=== PATIENT | female | born 1945 | race Caucasian/White ===

== ENCOUNTER 2016-11-23 08:30 | Outpatient (CLI) | payer MEDICARE, OTHER | END 2016-11-23 08:31 | disposition home or self-care (01) | DX: E03.9 Hypothyroidism, unspecified (principal); E78.5 Hyperlipidemia, unspecified; Z51.81 Encounter for therapeutic drug level monitoring ==

== ENCOUNTER 2017-02-15 09:38 | Outpatient (CLI) | payer MEDICARE, OTHER ==
[2017-02-15 19:13] LABS: ALBUMIN/GLOBULIN RATIO 1.3 (1.0-2.2); BASOPHILS % (AUTO) 0.4 %; BILIRUBIN,TOTAL 0.7 mg/dL (0.2-1.0); BUN - BLOOD UREA NITROGEN 13 mg/dL (6-20); CALCIUM 9.8 mg/dL (8.5-10.3); CARBON DIOXIDE - CO2 26 mmol/L (21-32); CHLORIDE 105 mmol/L (101-111); CHOL/HDL RATIO 2.2 (<4.4); CHOLESTEROL 169 mg/dL; CREATININE 0.7 mg/dL (0.4-1.0); EOSINOPHILS # (AUTO) 0.2 10^3/uL (0.0-0.7); EOSINOPHILS % (AUTO) 3.8 %; GFR - MDRD 82 (>89); GLUCOSE 95 mg/dL (70-100); HCT - HEMATOCRIT 41.7 % (37.0-47.0); HDL CHOLESTEROL 77 mg/dL; HGB - HEMOGLOBIN 13.8 g/dL (12.0-16.0); LDL/HDL RATIO 0.9 (<4.4); LYMPHOCYTES # (AUTO) 1.9 10^3/uL (1.5-3.5); LYMPHOCYTES % (AUTO) 29.4 %; MEAN CORPUSCULAR HEMOGLOBIN 29.7 pg (27.0-31.0); MEAN PLATELET VOLUME 8.3 fL (7.9-10.8); MONOCYTES # (AUTO) 0.4 10^3/uL (0.0-1.0); NEUTROPHILS # (AUTO) 3.8 10^3/uL (1.5-6.6); NEUTROPHILS % (AUTO) 59.4 %; NUCLEATED RED BLOOD CELLS AUTO 0.1 /100WBC; POTASSIUM 4.2 mmol/L (3.5-5.0); RED BLOOD COUNT 4.63 10^6/uL (4.20-5.40); RED CELL DISTRIBUTION WIDTH 13.1 % (12.0-15.0); SODIUM 140 mmol/L (135-145); TOTAL PROTEIN 7.5 g/dL (6.7-8.2); TRIGLYCERIDES 98 mg/dL; UNCORRECTED WHITE BLOOD COUNT 6.4 x10^3/uL; VLDL CHOLESTEROL 20 mg/dL; WHITE BLOOD COUNT 6.4 x10^3/uL (4.8-10.8)
[2017-02-15 19:36] LABS: THYROID STIMULATING HORMONE 2.06 uIU/mL (0.34-5.60)
== END 2017-02-15 09:39 | disposition home or self-care (01) ==
LOC: LAB.S 09:38
PROVIDERS: ATTEND Nurse Practitioner Family
DX: Z51.81 Encounter for therapeutic drug level monitoring (principal)
CPT/HCPCS: 36415; 80053; 80061; 84439; 84443; 85025

== ENCOUNTER 2017-03-15 10:45 | Outpatient (CLI) | payer MEDICARE, OTHER ==
[2017-03-15 18:27] LABS: BILIRUBIN,URINE NEGATIVE (NEGATIVE)
[2017-03-15 18:41] LABS: UR CULTURE IF IND INDICATED
== END 2017-03-15 10:46 | disposition home or self-care (01) ==
LOC: LAB.R 10:45
PROVIDERS: ATTEND Nurse Practitioner Family
DX: N39.0 Urinary tract infection, site not specified (principal)
CPT/HCPCS: 81001; 87077; 87086

== ENCOUNTER 2017-03-24 08:00 | Outpatient (CLI) | payer MEDICARE, OTHER ==
[2017-03-24 18:39] LABS: BILIRUBIN,URINE NEGATIVE (NEGATIVE)
[2017-03-24 19:06] LABS: UR CULTURE IF IND NOT INDICATED
== END 2017-03-24 08:01 ==
LOC: LAB.R 08:00
PROVIDERS: ATTEND Nurse Practitioner Family
DX: N39.0 Urinary tract infection, site not specified (principal)
CPT/HCPCS: 81001; 87086

== ENCOUNTER 2017-05-10 08:51 | Outpatient (CLI) | payer MEDICARE, OTHER ==
[2017-05-10 19:54] LABS: THYROID STIMULATING HORMONE < 0.08 uIU/mL (0.34-5.60)
== END 2017-05-10 08:52 | disposition home or self-care (01) ==
LOC: LAB.S 08:51
PROVIDERS: ATTEND Nurse Practitioner Family
DX: N39.0 Urinary tract infection, site not specified (principal); E03.9 Hypothyroidism, unspecified
CPT/HCPCS: 36415; 81001; 84439; 84443; 87086

== ENCOUNTER 2017-05-11 08:00 | Outpatient (CLI) | payer MEDICARE, OTHER ==
[2017-05-11 18:30] LABS: BILIRUBIN,URINE NEGATIVE (NEGATIVE)
[2017-05-11 18:57] LABS: UR CULTURE IF IND NOT INDICATED
== END 2017-05-11 08:01 | disposition home or self-care (01) ==
LOC: LAB.R 08:00
PROVIDERS: ATTEND Nurse Practitioner Family
DX: N39.0 Urinary tract infection, site not specified (principal)
CPT/HCPCS: 81001; 87086

== ENCOUNTER 2017-09-20 08:00 | Outpatient (CLI) | payer MEDICARE, OTHER ==
[2017-09-20 18:52] LABS: THYROID STIMULATING HORMONE < 0.08 uIU/mL (0.34-5.60)
[2017-09-20 18:53] LABS: FREE T4 (FREE THYROXINE) 0.83 ng/dL (0.58-1.64)
== END 2017-09-20 08:01 | disposition home or self-care (01) ==
LOC: LAB.S 08:00
PROVIDERS: ATTEND Nurse Practitioner Family
DX: E03.9 Hypothyroidism, unspecified (principal)
CPT/HCPCS: 36415; 84439; 84443

== ENCOUNTER 2017-12-27 10:05 | Outpatient (CLI) | payer MEDICARE, OTHER ==
[2017-12-27 17:57] LABS: BASOPHILS % (AUTO) 0.5 %; EOSINOPHILS # (AUTO) 0.2 10^3/uL (0.0-0.7); EOSINOPHILS % (AUTO) 4.3 %; HGB - HEMOGLOBIN 13.1 g/dL (12.0-16.0); LYMPHOCYTES # (AUTO) 2.1 10^3/uL (1.5-3.5); LYMPHOCYTES % (AUTO) 41.1 %; MEAN CORPUSCULAR HEMOGLOBIN 29.5 pg (27.0-31.0); MEAN CORPUSCULAR HGB CONC 33.4 g/dL (32.0-36.0); MEAN CORPUSCULAR VOLUME 88.3 fL (81.0-99.0); MEAN PLATELET VOLUME 8.4 fL (7.9-10.8); MONOCYTES # (AUTO) 0.4 10^3/uL (0.0-1.0); MONOCYTES % (AUTO) 7.4 %; NEUTROPHILS # (AUTO) 2.3 10^3/uL (1.5-6.6); NEUTROPHILS % (AUTO) 46.7 %; PLT - PLATELET COUNT 246 10^3/uL (130-450); RED BLOOD COUNT 4.42 10^6/uL (4.20-5.40); RED CELL DISTRIBUTION WIDTH 13.3 % (12.0-15.0)
[2017-12-27 18:26] LABS: THYROID STIMULATING HORMONE 0.23 uIU/mL (0.34-5.60)
[2017-12-27 18:27] LABS: ALBUMIN 4.2 g/dL (3.2-5.5); ALBUMIN/GLOBULIN RATIO 1.4 (1.0-2.2); ALKALINE PHOSPHATASE 80 IU/L (42-121); ALT ALANINE AMINOTRANSFERASE 45 IU/L (10-60); AST ASPARTATE AMINOTRANSFERASE 42 IU/L (10-42); BILIRUBIN,TOTAL 0.6 mg/dL (0.2-1.0); BUN - BLOOD UREA NITROGEN 11 mg/dL (6-20); CALCIUM 9.3 mg/dL (8.5-10.3); CARBON DIOXIDE - CO2 26 mmol/L (21-32); CHLORIDE 104 mmol/L (101-111); CHOL/HDL RATIO 3.1 (<4.4); CHOLESTEROL 192 mg/dL; CREATININE 0.7 mg/dL (0.4-1.0); GFR - MDRD 82 (>89); GLUCOSE 87 mg/dL (70-100); HDL CHOLESTEROL 62 mg/dL; LDL CHOLESTEROL,CALCULATED 107 mg/dL; LDL/HDL RATIO 1.7 (<4.4); SODIUM 138 mmol/L (135-145); TOTAL PROTEIN 7.3 g/dL (6.7-8.2); VLDL CHOLESTEROL 23 mg/dL
[2017-12-27 19:13] LABS: FREE T4 (FREE THYROXINE) 0.63 ng/dL (0.58-1.64)
== END 2017-12-27 23:59 ==
LOC: LAB.S 10:05
PROVIDERS: ATTEND Nurse Practitioner Family
DX: Z51.81 Encounter for therapeutic drug level monitoring (principal); E78.5 Hyperlipidemia, unspecified; E03.9 Hypothyroidism, unspecified
CPT/HCPCS: 36415; 80053; 80061; 83721; 84439; 84443; 85025

== ENCOUNTER 2018-03-28 10:33 | Outpatient (CLI) | payer MEDICARE, OTHER ==
[2018-03-28 19:21] LABS: THYROID STIMULATING HORMONE 44.74 uIU/mL (0.34-5.60)
[2018-03-28 19:26] LABS: FREE T4 (FREE THYROXINE) < 0.25 ng/dL (0.58-1.64)
== END 2018-03-28 10:34 | disposition home or self-care (01) ==
LOC: LAB.S 10:33
PROVIDERS: ATTEND Nurse Practitioner Family
DX: E03.9 Hypothyroidism, unspecified (principal)
CPT/HCPCS: 36415; 84439; 84443; 84481

== ENCOUNTER 2018-04-27 12:15 | Outpatient (CLI) | payer MEDICARE, OTHER ==
[2018-04-27 18:00] LABS: BILIRUBIN,URINE NEGATIVE (NEGATIVE); GLUCOSE, URINE (UA) NEGATIVE (NEGATIVE); KETONES,URINE (UA) NEGATIVE (NEGATIVE); LEUKOCYTE ESTERASE, URINE LARGE (NEGATIVE); NITRITE,URINE NEGATIVE (NEGATIVE); OCCULT BLOOD,URINE SMALL (NEGATIVE); PH,URINE 6.5 PH (5.0-7.5); PROTEIN,URINE NEGATIVE (NEGATIVE); UROBILINOGEN,URINE 0.2 (NORMAL) E.U./dL (NORMAL)
[2018-04-27 18:15] LABS: BACTERIA,URINE None Seen /HPF (None Seen); CLARITY,URINE CLOUDY (CLEAR); EPITHELIAL CELLS,UR RARE Renal Tubular /HPF (<= Few); RBC,URINE 0-5 /HPF (0-5); SQUAMOUS EPITHELIAL CELL,UR MOD Squamous (<= Few); WBC CLUMPS,URINE PRESENT
== END 2018-04-27 12:16 | disposition home or self-care (01) ==
LOC: LAB.R 12:15
PROVIDERS: ATTEND Nurse Practitioner Family
DX: R30.0 Dysuria (principal)
CPT/HCPCS: 81001; 87086

== ENCOUNTER 2018-04-29 13:30 | Outpatient (CLI) | payer MEDICARE, OTHER ==
[2018-04-29 17:42] LABS: BILIRUBIN,URINE NEGATIVE (NEGATIVE); GLUCOSE, URINE (UA) NEGATIVE (NEGATIVE); KETONES,URINE (UA) NEGATIVE (NEGATIVE); LEUKOCYTE ESTERASE, URINE TRACE (NEGATIVE); NITRITE,URINE NEGATIVE (NEGATIVE); OCCULT BLOOD,URINE NEGATIVE (NEGATIVE); PROTEIN,URINE TRACE mg/dL (NEGATIVE); UROBILINOGEN,URINE 0.2 (NORMAL) E.U./dL (NORMAL)
[2018-04-29 17:51] LABS: BACTERIA,URINE None Seen /HPF (None Seen); CLARITY,URINE CLEAR (CLEAR); RBC,URINE 0-5 /HPF (0-5); SQUAMOUS EPITHELIAL CELL,UR RARE Squamous (<= Few)
== END 2018-04-29 13:31 | disposition home or self-care (01) ==
LOC: LAB.R 13:30
PROVIDERS: ATTEND Nurse Practitioner Family
DX: R30.0 Dysuria (principal)
CPT/HCPCS: 81001; 81003; 87086

== ENCOUNTER 2018-06-23 13:11 | Outpatient (CLI) | payer MEDICARE, OTHER ==
--- NOTE | 2018-06-23 15:22 | DEXA Report ---
Reason: POST MENOPAUSAL Procedure Date: 06/23/2018 Accession Number: [id number] / [id number] Procedure: DEX - Dexa Spine and/or Hip CPT Code: FULL RESULT: EXAM: Dexa Spine and/or Hip DATE: 06/23/2018 1:41 PM CLINICAL HISTORY: POST MENOPAUSAL TECHNIQUE: Dual energy x-ray absorptiometry (DXA) was performed on a [employer] System. Regions measured are the AP Spine, femoral neck, and if needed forearm. COMPARISON: None. In accordance with the International Society for Clinical Densitometry (ISCD) guidelines, data from previous exams may be reanalyzed using current recommendations and techniques. This is done to allow a more accurate basis for comparison with the current study. FINDINGS: The data for the lumbar spine is as follows: BMD (g/cm/cm) T-SCORE Z-SCORE REGION L1 1.115 -0.1 1.3 L2 1.190 -0.1 1.4 L3 1.397 1.6 3.1 L4 1.406 1.7 3.2 TOTAL 1.288 0.9 2.4 NOTE: All evaluable vertebrae are used for classification The data for the hip is as follows: BMD (g/cm/cm) T-SCORE Z-SCORE REGION Neck 0.777 -1.9 -0.1 TOTAL 0.881 -1.0 0.5 NOTE: The femoral neck or total proximal femur, whichever is lowest, is used for classification. IMPRESSION: THE WHO CLASSIFICATION BASED ON THE INTERNATIONAL REFERENCE STANDARD IS OSTEOPENIA. THE FRACTURE RISK IS INCREASED. RECOMMENDATION: Patients with diagnosis of osteoporosis or osteopenia should have regular bone mineral density assessment. For those eligible for Medicare, routine testing is allowed once every 2 years. Testing frequency can be increased for patients who have rapidly progressing disease or for those who are receiving medical therapy to restore bone mass. COMMENT: World Health Organization (WHO) definitions for osteoporosis and osteopenia: NORMAL BMD: T-score at -1.0 or higher, fracture risk is low OSTEOPENIA BMD: T-score between -1.0 and -2.5, fracture risk is increased. OSTEOPOROSIS BMD: T-score at -2.5 or lower, fracture risk is high. National Osteoporosis Foundation recommends: 1. Obtain adequate dietary calcium (at least 1200 mg per day) and vitamin D (400-800 international units per day). 2. Participate, as appropriate, in regular weightbearing and muscle-strengthening exercise. 3. Avoid tobacco use and reduce alcohol and caffeine intake. 4. For more detailed information see the website at www.NOF.org.
== END 2018-06-23 13:12 | disposition home or self-care (01) ==
LOC: DI 13:11
PROVIDERS: ATTEND Internal Medicine
DX: Z13.820 Encounter for screening for osteoporosis (principal); N95.8 Other specified menopausal and perimenopausal disorders; M85.89 Other specified disorders of bone density and structure, multiple sites
CPT/HCPCS: 77080

== ENCOUNTER 2019-01-18 21:59 | Outpatient (CLI) | payer MEDICARE, OTHER ==
--- NOTE | 2019-01-19 01:05 | Ultrasound Report ---
Reason: BILATERAL LEG SWELLING, BILATERAL CALF PAIN Procedure Date: 01/18/2019 Accession Number: [id number] / [id number] Procedure: US - Duplex Ext Veins Bilateral CPT Code: FULL RESULT: EXAM: BILATERAL LOWER EXTREMITY VENOUS ULTRASOUND EXAM DATE: 01/18/2019 11:13 PM. CLINICAL HISTORY: BILATERAL LEG SWELLING, BILATERAL CALF PAIN. COMPARISON: None. TECHNIQUE: Real-time sonographic vascular imaging was performed by the infection preventionist through the lower extremities utilizing both color-flow and Doppler spectral analysis. Multiple field representative/health education static images were saved for review. FINDINGS: Right: Common Femoral Vein (CFV): Normal. CFV-GSV Junction: Normal. Profunda Femoral Vein (PFV): Normal. Femoral Vein (FV) Prox: Normal. Femoral Vein (FV) Mid: Normal. Femoral Vein (FV) Dist: Normal. Popliteal Vein: Normal. Posterior Tibial Veins: Normal. Peroneal Veins: Normal. Left: Common Femoral Vein (CFV): Normal. CFV-GSV Junction: Normal. Profunda Femoral Vein (PFV): Normal. Femoral Vein (FV) Prox: Normal. Femoral Vein (FV) Mid: Normal. Femoral Vein (FV) Dist: Normal. Popliteal Vein: Normal. Posterior Tibial Veins: Normal. Peroneal Veins: Normal. Other: None. IMPRESSION: No evidence for deep venous thrombosis bilaterally. RADIA
== END 2019-01-18 22:00 | disposition home or self-care (01) ==
LOC: DI 21:59
PROVIDERS: ATTEND Physician Assistant Medical
DX: M79.661 Pain in right lower leg (principal); M79.662 Pain in left lower leg; M79.89 Other specified soft tissue disorders
CPT/HCPCS: 93970

== ENCOUNTER 2019-01-30 13:12 | Emergency (ER) | payer MEDICARE, OTHER ==
[2019-01-30 13:42] LABS: BILIRUBIN,URINE NEGATIVE (NEGATIVE); GLUCOSE, URINE (UA) NEGATIVE (NEGATIVE); KETONES,URINE (UA) NEGATIVE (NEGATIVE); LEUKOCYTE ESTERASE, URINE MODERATE (NEGATIVE); NITRITE,URINE POSITIVE (NEGATIVE); OCCULT BLOOD,URINE SMALL (NEGATIVE); PH,URINE 6.5 PH (5.0-7.5); PROTEIN,URINE TRACE mg/dL (NEGATIVE); UROBILINOGEN,URINE 1 (NORMAL) E.U./dL (NORMAL)
[2019-01-30 13:52] LABS: CLARITY,URINE CLOUDY (CLEAR)
[2019-01-30 13:53] LABS: BACTERIA,URINE Many /HPF (None Seen); SQUAMOUS EPITHELIAL CELL,UR FEW Squamous (<= Few); WBC CLUMPS,URINE PRESENT
--- NOTE | 2019-01-30 14:31 | ED Physician Documentation ---
History of Present Illness - Stated complaint Stated Complaint: FEMALE - Chief complaint Chief Complaint: General - History obtained from History obtained from: Patient - History of Present Illness Timing: Today (Dysuria and frequency today. She also notes neck stiffness for the last 2 days, she thinks because of stress. No weakness, numbness, or tingling in the extremities. She does have a chronic unchanged right facial droop for several years. She has multiple antibiotic allergies and sensitivities. Last UTI was about a year ago. Mild low back pain but no flank pain. She felt hot and cold a little bit.) Review of Systems Constitutional: reports: Chills. denies: Fever Cardiac: reports: Reviewed and negative Respiratory: reports: Reviewed and negative PD PAST MEDICAL HISTORY - Present Medications Home Medications: Ambulatory Orders Medication Instructions Recorded Confirmed Doxycycline Hyclate 100 mg PO BID #20 capsule 01/30/19 Phenazopyridine HCl [Pyridium] 200 mg PO TID PRN #6 tablet 01/30/19 - Allergies Allergies/Adverse Reactions: Allergies Allergy/AdvReac Type Severity Reaction Status Date / Time amoxicillin Allergy Unknown Verified 01/30/19 13:18 ciprofloxacin [From Cipro] Allergy Unknown Verified 01/30/19 13:18 Sulfa (Sulfonamide Allergy Unknown Verified 01/30/19 13:18 Antibiotics) PD ED PE NORMAL - Vitals Vital signs reviewed: Yes - General General: Alert and oriented X 3, No acute distress - Neck Neck: Supple, no meningeal sign, No bony TTP - Abdomen Abdomen: Soft, Non tender - Back Back: No CVA TTP, No spinal TTP - Neuro Neuro: Alert and oriented X 3, Normal speech Results - Vitals Vitals: Vital Signs - 24 hr 01/30/19 13:15 Temperature 36.6 C Heart Rate 90 O2 Saturation 98 Oxygen O2 Source Room air - Labs Labs: Laboratory Tests 01/30/19 13:35 Urine Color ORANGE Urine Clarity CLOUDY Urine pH 6.5 Ur Specific [place] 1.010 Urine Protein TRACE Urine Glucose (UA) NEGATIVE Urine Ketones NEGATIVE Urine Occult Blood SMALL H Urine Nitrite POSITIVE H Urine Bilirubin NEGATIVE Urine Urobilinogen 1 (NORMAL) Ur Leukocyte Esterase MODERATE H Urine RBC 6-10 H Urine WBC >25 H Urine WBC Clumps PRESENT Ur Squamous Epith Cells FEW Squamous Urine Bacteria Many H Ur Microscopic Review INDICATED Urine Culture Comments INDICATED PD MEDICAL DECISION MAKING - ED course ED course: Her allergies made choosing an antibiotic somewhat difficult. Last culture reviewed, pansensitive E. coli and doxycycline was chosen. Departure - Departure Disposition: 01 Home, Self Care Clinical Impression: Cystitis Condition: Good Record reviewed to determine appropriate education?: Yes Instructions: ED UTI Cystitis Female Prescriptions: Doxycycline Hyclate 100 mg PO BID #20 capsule Phenazopyridine HCl [Pyridium] 200 mg PO TID PRN #6 tablet PRN Reason: dysuria Comments: We will culture your urine, the results should be done in 48-72 hours. If an antibiotic change is necessary we will call you. Return if worse in the meantime, especially if you develop increasing flank pain, fevers, or cannot keep down the medication.
[2019-01-30] MEDS ORDERED: DOXYCYCLINE 100 MG TABLET PO STA (14:32)
[2019-01-30] MEDS ORDERED: PHENAZOPYRIDINE 100 MG TABLET PO STA (14:32)
[2019-01-30 14:44] VITALS: BP 131/79
== END 2019-01-30 14:50 | disposition home or self-care (01) ==
LOC: ED 13:12
DX: N30.90 Cystitis, unspecified without hematuria (principal); M43.6 Torticollis; Z88.0 Allergy status to penicillin; Z88.2 Allergy status to sulfonamides
CPT/HCPCS: 81001; 87086; 87181; 99283; A9270; 81003

== ENCOUNTER 2019-05-04 10:16 | Outpatient (CLI) | payer MEDICARE, OTHER ==
--- NOTE | 2019-05-05 14:25 | Ultrasound Report ---
Reason: SOB, ELEVATED D DIMER, OTHER CHEST PAIN Procedure Date: 05/04/2019 Accession Number: [id number] / [id number] Procedure: US - Duplex Ext Veins Bilateral CPT Code: FULL RESULT: EXAM: BILATERAL LOWER EXTREMITY VENOUS ULTRASOUND EXAM DATE: 05/04/2019 12:09 PM. CLINICAL HISTORY: Shortness of breath, ELEVATED D DIMER, OTHER CHEST PAIN. COMPARISON: DUPLEX EXT VEINS BILATERAL 01/18/2019 10:07 PM. TECHNIQUE: Real-time sonographic vascular imaging was performed by the trademark attorney through the lower extremities utilizing both color-flow and Doppler spectral analysis. Multiple c s s representative static images were saved for review. FINDINGS: Right: Common Femoral Vein (CFV): Normal. CFV-GSV Junction: Normal. Profunda Femoral Vein (PFV): Normal. Femoral Vein (FV) Prox: Normal. Femoral Vein (FV) Mid: Normal. Femoral Vein (FV) Dist: Normal. Popliteal Vein: Normal. Posterior Tibial Veins: Normal. Peroneal Veins: Normal. Left: Common Femoral Vein (CFV): Normal. CFV-GSV Junction: Normal. Profunda Femoral Vein (PFV): Normal. Femoral Vein (FV) Prox: Normal. Femoral Vein (FV) Mid: Normal. Femoral Vein (FV) Dist: Normal. Popliteal Vein: Normal. Posterior Tibial Veins: Normal. Peroneal Veins: Normal. Other: None. IMPRESSION: No evidence for deep venous thrombosis in the bilateral lower extremities. RADIA
== END 2019-05-04 10:17 | disposition home or self-care (01) ==
LOC: DI 10:16
PROVIDERS: ATTEND Specialist
DX: R06.02 Shortness of breath (principal); R07.89 Other chest pain
CPT/HCPCS: 93970

== ENCOUNTER 2019-05-09 10:08 | Outpatient (CLI) | payer MEDICARE, OTHER | END 2019-05-09 10:09 | disposition home or self-care (01) | LOC: DI 10:08 | PROVIDERS: ATTEND Specialist | DX: R07.89 Other chest pain (principal); R06.02 Shortness of breath; R79.89 Other specified abnormal findings of blood chemistry | CPT/HCPCS: 93306 ==

== ENCOUNTER 2020-03-16 17:33 | Outpatient (CLI) | payer MEDICARE, OTHER ==
--- NOTE | 2020-03-17 07:53 | Ultrasound Report ---
PROCEDURE: Pelvic Complete INDICATIONS: Bloating, constipation, fatigue, BLE. Additional history: . Postmenopausal. Family history of ovarian cancer. TECHNIQUE: Real-time transabdominal scanning was performed of the pelvic organs, with image documentation. COMPARISON: None. FINDINGS: Uterus: Uterus is anteverted and normal in size at 6.9 x 4.2 x 3 cm. Myometrium is somewhat heterog eneous. No uterine mass. Endometrium measures 10 mm in combined thickness. Ovaries: Right ovary measures 1.8 x 1.3 x 0.7 cm. Left ovary is not well seen. Other: No free pelvic fluid. Limited scanning through the kidneys shows no hydronephrosis. IMPRESSION: 1. Endometrial thickness measuring 10 mm. -Endometrial biopsy is recommended to exclude endometrial cancer. 2. Left ovary is not well seen. Right ovary appears normal. -Consider further evaluation with screening CT abdomen pelvis or pelvic MRI. 3. Heterogeneous appearance of the uterine myometrium. Reviewed by: Willy Montgomery MD on 03/16/2020 10:14 PM PDT Approved by: Willy Montgomery MD on 03/16/2020 10:14 PM PDT Station ID: [id number]
== END 2020-03-16 17:34 | disposition home or self-care (01) ==
LOC: DI 17:33
PROVIDERS: ATTEND Nurse Practitioner
DX: R93.89 Abnormal findings on diagnostic imaging of other specified body structures (principal)
CPT/HCPCS: 76856

== ENCOUNTER 2020-04-04 09:26 | Outpatient (CLI) | payer MEDICARE, OTHER ==
--- NOTE | 2020-04-04 14:23 | XRAY Report ---
PROCEDURE: Shoulder 3 View LT INDICATIONS: L SHOULDER PAIN TECHNIQUE: 3 views of the shoulder were acquired. COMPARISON: None. FINDINGS: Bones: No fractures or dislocations. No suspicious bony lesions. Visualized ribs appear intact. S evere acromioclavicular degenerative narrowing. Soft tissues: No suspicious soft tissue calcifications. IMPRESSION: Severe acromioclavicular degenerative narrowing. Reviewed by: Melissa Gamino MD on 04/04/2020 2:21 PM PDT Approved by: Melissa Gamino MD on 04/04/2020 2:21 PM PDT Station ID: [id number]
== END 2020-04-04 09:27 | disposition home or self-care (01) ==
LOC: DI.S 09:26
PROVIDERS: ATTEND Internal Medicine
DX: S46.002A Unspecified injury of muscle(s) and tendon(s) of the rotator cuff of left shoulder, initial encounter (principal); M19.012 Primary osteoarthritis, left shoulder

== ENCOUNTER 2020-04-16 08:00 | Outpatient (CLI) | payer MEDICARE, OTHER | END 2020-04-16 23:59 | disposition home or self-care (01) | LOC: LAB.R 08:00 | PROVIDERS: ATTEND Physician Assistant | DX: R06.2 Wheezing (principal); Z20.828 Contact with and (suspected) exposure to other viral communicable diseases ==

== ENCOUNTER 2020-05-18 12:55 | Outpatient (CLI) | payer MEDICARE, OTHER ==
[2020-05-18 18:25] LABS: CHOL/HDL RATIO 3.9 (<4.4); CHOLESTEROL 258 mg/dL; HDL CHOLESTEROL 66 mg/dL; LDL CHOLESTEROL,CALCULATED 159 mg/dL; LDL/HDL RATIO 2.4 (<4.4); VLDL CHOLESTEROL 33 mg/dL
== END 2020-05-18 12:56 | disposition home or self-care (01) ==
LOC: LAB.S 12:55
PROVIDERS: ATTEND Internal Medicine
DX: E78.5 Hyperlipidemia, unspecified (principal); E03.9 Hypothyroidism, unspecified
CPT/HCPCS: 36415; 80061; 83721; 84443

== ENCOUNTER 2020-08-06 08:00 | Outpatient (CLI) | payer MEDICARE, OTHER | END 2020-08-06 23:59 | disposition home or self-care (01) | LOC: LAB.R 08:00 | PROVIDERS: ATTEND Nurse Practitioner | DX: R30.0 Dysuria (principal) | CPT/HCPCS: 87086; 87181 ==

== ENCOUNTER 2021-02-14 12:45 | Emergency (ER) | payer MEDICARE, OTHER ==
[2021-02-14 12:54] VITALS: BP 118/66
[2021-02-14 13:17] LABS: BASOPHILS % (AUTO) 0.5 %; EOSINOPHILS # (AUTO) 0.2 10^3/uL (0.0-0.7); EOSINOPHILS % (AUTO) 3.6 %; HCT - HEMATOCRIT 41.2 % (37.0-47.0); HGB - HEMOGLOBIN 13.8 g/dL (12.0-16.0); LYMPHOCYTES # (AUTO) 2.3 10^3/uL (1.5-3.5); LYMPHOCYTES % (AUTO) 37.9 %; MEAN CORPUSCULAR HEMOGLOBIN 29.9 pg (27.0-31.0); MEAN CORPUSCULAR HGB CONC 33.5 g/dL (32.0-36.0); MEAN CORPUSCULAR VOLUME 89.2 fL (81.0-99.0); MEAN PLATELET VOLUME 9.6 fL (7.9-10.8); MONOCYTES # (AUTO) 0.5 10^3/uL (0.0-1.0); MONOCYTES % (AUTO) 8.4 %; NEUTROPHILS # (AUTO) 3.1 10^3/uL (1.5-6.6); NEUTROPHILS % (AUTO) 49.4 %; PLT - PLATELET COUNT 262 10^3/uL (130-450); RED BLOOD COUNT 4.62 10^6/uL (4.20-5.40); RED CELL DISTRIBUTION WIDTH 12.4 % (12.0-15.0); WHITE BLOOD COUNT 6.2 x10^3/uL (4.8-10.8)
[2021-02-14 13:23] LABS: BILIRUBIN,URINE NEGATIVE (NEGATIVE); GLUCOSE, URINE (UA) NEGATIVE (NEGATIVE); KETONES,URINE (UA) NEGATIVE (NEGATIVE); LEUKOCYTE ESTERASE, URINE MODERATE (NEGATIVE); NITRITE,URINE NEGATIVE (NEGATIVE); OCCULT BLOOD,URINE NEGATIVE (NEGATIVE); PROTEIN,URINE NEGATIVE (NEGATIVE); UROBILINOGEN,URINE 0.2 (NORMAL) E.U./dL (NORMAL)
[2021-02-14 13:24] LABS: CLARITY,URINE CLEAR (CLEAR)
[2021-02-14 13:30] LABS: BACTERIA,URINE Many /HPF (None Seen); RBC,URINE 0-5 /HPF (0-5); SQUAMOUS EPITHELIAL CELL,UR MANY Squamous (<= Few)
[2021-02-14 13:36] LABS: ALBUMIN 4.4 g/dL (3.2-5.5); ALBUMIN/GLOBULIN RATIO 1.2 (1.0-2.2); BILIRUBIN,TOTAL 0.5 mg/dL (0.2-1.0); CALCIUM 9.7 mg/dL (8.5-10.3); CREATININE 0.9 mg/dL (0.4-1.0); POTASSIUM 4.1 mmol/L (3.5-5.0); TOTAL PROTEIN 8.1 g/dL (6.7-8.2)
[2021-02-14] MEDS ORDERED: LIDOCAINE VISCOUS 2% 15 ML UDC MM STA (14:00)
[2021-02-14] MEDS ORDERED: MAG HYDROX/AL HYDROX/SIMETH 30 ML UDC PO STA (14:00)
[2021-02-14] MEDS ORDERED: ACETAMINOPHEN 325 MG TABLET PO STA (14:00)
--- NOTE | 2021-02-14 14:00 | ED Physician Documentation ---
PD HPI ABD PAIN - Stated complaint Stated Complaint: ABD PX - Chief complaint Chief Complaint: Abd Pain - History obtained from History obtained from: Patient - Additional information Additional information: 75-year-old woman with no history of abdominal surgeries but has had a history of Carlin's and GERD. Maintained on omeprazole. For last few weeks she has noticed upper abdominal bloating and bulging that is not positional related. Seems worse after she takes her thyroid supplementation and after spicy food. There is no associated nausea. She has chronic constipation which is unchanged from usual. She was seen in the clinic and referred here for further evaluation and treatment. Review of Systems Ten Systems: 10 systems reviewed and negative Constitutional: reports: Reviewed and negative Eyes: reports: Reviewed and negative Ears: reports: Reviewed and negative Nose: reports: Reviewed and negative PD PAST MEDICAL HISTORY - Past Surgical History Past Surgical History: No - Present Medications Home Medications: Ambulatory Orders Medication Instructions Recorded Confirmed Levothyroxine [Synthroid] 1 tab PO DAILY 02/14/21 02/14/21 Omeprazole [PriLOSEC] 1 tab PO DAILY 02/14/21 02/14/21 Omeprazole [PriLOSEC] 20 mg PO BID 14 Days #60 02/14/21 Sucralfate [Carafate] 1 gm PO ACHS #60 tablet 02/14/21 - Allergies Allergies/Adverse Reactions: Allergies Allergy/AdvReac Type Severity Reaction Status Date / Time amoxicillin Allergy Unknown Verified 02/14/21 12:50 ciprofloxacin [From Cipro] Allergy Unknown Verified 02/14/21 12:50 Sulfa (Sulfonamide Allergy Unknown Verified 02/14/21 12:50 Antibiotics) - Social History Does the pt smoke?: No Smoking Status: Never smoker Does the pt drink ETOH?: No Does the pt have substance abuse?: No - Immunizations Immunizations are current?: No - POLST Patient has POLST: No PD ED PE NORMAL - Vitals Vital signs reviewed: Yes - General General: Alert and oriented X 3, No acute distress - HEENT HEENT: PERRL, EOMI - Neck Neck: Supple, no meningeal sign, No bony TTP - Cardiac Cardiac: RRR, No murmur - Respiratory Respiratory: No respiratory distress, Clear bilaterally - Abdomen Abdomen: Normal bowel sounds, Soft, Non tender - Back Back: No CVA TTP, No spinal TTP - Derm Derm: Normal color, Warm and dry - Extremities Extremities: No edema, No calf tenderness / cord - Neuro Neuro: Alert and oriented X 3, Normal speech Results - Vitals Vitals: Vital Signs - 24 hr 02/14/21 12:50 Temperature 36.5 C Heart Rate 106 H Respiratory 16 Rate Blood Pressure 118/66 O2 Saturation 99 Oxygen O2 Source Room air - Labs Labs: Laboratory Tests 02/14/21 02/14/21 02/14/21 13:06 13:13 13:13 WBC 6.2 RBC 4.62 Hgb 13.8 Hct 41.2 MCV 89.2 MCH 29.9 MCHC 33.5 RDW 12.4 Plt Count 262 MPV 9.6 Neut # (Auto) 3.1 Lymph # (Auto) 2.3 Weber # (Auto) 0.5 Eos # (Auto) 0.2 Baso # (Auto) 0.0 Absolute Nucleated RBC 0.00 Nucleated RBC % 0.0 Sodium 138 Potassium 4.1 Chloride 103 Carbon Dioxide 25 Anion Gap 10.0 BUN 15 Creatinine 0.9 Estimated GFR (MDRD) 61 L Glucose 123 H Calcium 9.7 Total Bilirubin 0.5 AST 30 ALT 28 Alkaline Phosphatase 87 Total Protein 8.1 Albumin 4.4 Globulin 3.7 Albumin/Globulin Ratio 1.2 Lipase 27 Urine Color YELLOW Urine Clarity CLEAR Urine pH 6.0 Ur Specific [place] >=1.030 H Urine Protein NEGATIVE Urine Glucose (UA) NEGATIVE Urine Ketones NEGATIVE Urine Occult Blood NEGATIVE Urine Nitrite NEGATIVE Urine Bilirubin NEGATIVE Urine Urobilinogen 0.2 (NORMAL) Ur Leukocyte Esterase MODERATE H Urine RBC 0-5 Urine WBC 6-10 H Ur Squamous Epith Cells MANY Squamous H Urine Bacteria Many H Ur Microscopic Review INDICATED Urine Culture Comments NOT INDICATED PD MEDICAL DECISION MAKING - ED course ED course: 75-year-old woman with epigastric pain, the association with spicy food and lack of tenderness would seem consistent with gastritis/reflux. She had complete and significant relief with a GI cocktail here. Given her age and the differential diagnosis she went over the CT scan. The IV infiltrated and she declined imaging at that point. Given the Profound improvement with GI cocktail we will double her PPI and add sucralfate pending follow-up. She was given close return precautions. Departure - Departure Disposition: 01 Home, Self Care Clinical Impression: Gastritis Qualifiers: Gastritis type: unspecified gastritis Chronicity: chronic Gastritis bleeding: without bleeding Qualified Code(s): K29.50 - Unspecified chronic gastritis without bleeding Condition: Good Record reviewed to determine appropriate education?: Yes Instructions: ED Gastritis Prescriptions: Sucralfate [Carafate] 1 gm PO ACHS #60 tablet Omeprazole [PriLOSEC] 20 mg PO BID 14 Days #60 Comments: I want you to double the omeprazole from once a day to twice a day. A prescription is attached. Also we are starting sucralfate. Again the sucralfate needs to be taken an hour separate from your other medications. Follow-up with your primary care physician. Return for new or worsening symptoms.
[2021-02-14] MEDS ORDERED: IOVERSOL 320 100 ML VIAL IVP ONE (14:08)
== END 2021-02-14 15:02 | disposition home or self-care (01) ==
LOC: ED 12:45
DX: K29.50 Unspecified chronic gastritis without bleeding (principal); K21.9 Gastro-esophageal reflux disease without esophagitis
CPT/HCPCS: 36415; 80053; 81001; 83690; 85025; 99283; 99284; A9270; 81003; 87086

== ENCOUNTER 2021-07-14 15:08 | Emergency (ER) | payer MEDICARE, OTHER ==
[2021-07-14 15:40] VITALS: BP 122/61
[2021-07-14 16:10] LABS: CLARITY,URINE HAZY (CLEAR)
[2021-07-14 16:23] LABS: RBC,URINE 0-5 /HPF (0-5)
[2021-07-14 16:24] LABS: BACTERIA,URINE Many /HPF (None Seen); SQUAMOUS EPITHELIAL CELL,UR NONE SEEN (<= Few)
[2021-07-14] MEDS ORDERED: CEFPODOXIME PROXETIL 100 MG TABLET PO STA (16:47)
--- NOTE | 2021-07-14 16:49 | ED Physician Documentation ---
PD HPI FEMALE - Stated complaint Stated Complaint: FEMALE - Chief complaint Chief Complaint: UTI - History obtained from History obtained from: Patient (68-year-old woman with relatively frequent UTIs, may be to a year has had frequency and dysuria and may be some mild right flank pain since last night without fevers.) Review of Systems Constitutional: denies: Fever, Chills Cardiac: reports: Reviewed and negative Respiratory: reports: Reviewed and negative PD PAST MEDICAL HISTORY - Past Medical History Past Medical History: Yes - Past Surgical History Past Surgical History: No - Present Medications Home Medications: Ambulatory Orders Medication Instructions Recorded Confirmed Levothyroxine [Synthroid] 1 tab PO DAILY 02/14/21 02/14/21 Omeprazole [PriLOSEC] 1 tab PO DAILY 02/14/21 02/14/21 Omeprazole [PriLOSEC] 20 mg PO BID 14 Days #60 02/14/21 Sucralfate [Carafate] 1 gm PO ACHS #60 tablet 02/14/21 Cefdinir 300 mg PO BID #14 cap 07/14/21 - Allergies Allergies/Adverse Reactions: Allergies Allergy/AdvReac Type Severity Reaction Status Date / Time amoxicillin Allergy Unknown Verified 07/14/21 15:40 ciprofloxacin [From Cipro] Allergy Unknown Verified 07/14/21 15:40 Sulfa (Sulfonamide Allergy Unknown Verified 07/14/21 15:40 Antibiotics) - Social History Does the pt smoke?: No Smoking Status: Never smoker Does the pt drink ETOH?: No Does the pt have substance abuse?: No - Immunizations Immunizations are current?: No - POLST Patient has POLST: No PD ED PE NORMAL - Vitals Vital signs reviewed: Yes - General General: Alert and oriented X 3, No acute distress - Abdomen Abdomen: Normal bowel sounds, Soft, Other (Mild right flank tenderness, no abdominal tenderness) - Neuro Neuro: Alert and oriented X 3, Normal speech Results - Vitals Vitals: Vital Signs - 24 hr 07/14/21 15:19 Temperature 36.2 C L Heart Rate 97 Respiratory 16 Rate Blood Pressure 122/61 O2 Saturation 97 Oxygen O2 Source Room air - Labs Labs: Laboratory Tests 07/14/21 15:41 Urine Color ORANGE Urine Clarity HAZY Urine pH Ur Specific [place] Urine Protein Urine Glucose (UA) Urine Ketones Urine Occult Blood Urine Nitrite Urine Bilirubin Urine Urobilinogen Ur Leukocyte Esterase Urine RBC 0-5 Urine WBC 11-25 H Ur Squamous Epith Cells NONE SEEN Urine Bacteria Many H Ur Microscopic Review INDICATED Urine Culture Comments INDICATED Departure - Departure Disposition: 01 Home, Self Care Clinical Impression: Pyelonephritis Condition: Good Record reviewed to determine appropriate education?: Yes Instructions: Pyelonephritis Dc Prescriptions: Cefdinir 300 mg PO BID #14 cap Comments: Prescription sent electronically to [facility] in [place]. We will culture your urine, the results should be done in 48-72 hours. If an antibiotic change is necessary we will call you. Return if worse in the meantime, especially if you develop increasing flank pain, fevers, or cannot keep down the medication.
== END 2021-07-14 17:00 | disposition home or self-care (01) ==
LOC: ED 15:08
DX: N12 Tubulo-interstitial nephritis, not specified as acute or chronic (principal)
CPT/HCPCS: 81001; 87086; 87181; 99283; A9270; 81003

== ENCOUNTER 2021-08-05 08:00 | Outpatient (CLI) | payer MEDICARE, OTHER | END 2021-08-05 23:59 | disposition home or self-care (01) | LOC: LAB.S 08:00 | PROVIDERS: ATTEND Emergency Medicine | DX: R30.0 Dysuria (principal); R07.89 Other chest pain; Z20.822 Contact with and (suspected) exposure to COVID-19 | CPT/HCPCS: 87086; U0004; 87181 ==

== ENCOUNTER 2022-01-02 08:00 | Outpatient (CLI) | payer MEDICARE, OTHER | END 2022-01-02 23:59 | disposition home or self-care (01) | LOC: LAB.S 08:00 | PROVIDERS: ATTEND Emergency Medicine | DX: R07.0 Pain in throat (principal); Z20.822 Contact with and (suspected) exposure to COVID-19 | CPT/HCPCS: 87070; U0004 ==

== ENCOUNTER 2022-07-01 15:25 | Outpatient (CLI) | payer MEDICARE, OTHER ==
--- NOTE | 2022-07-01 17:26 | XRAY Report ---
PROCEDURE: Chest 2 View X-Ray INDICATIONS: COUGH TECHNIQUE: PA and lateral view of the chest. COMPARISON: None. FINDINGS: No focal consolidation or mass. No pneumothorax or pleural effusion. Bones and soft tissues are yael l. The thoracic spine has mild degenerative changes. IMPRESSION: No acute cardiopulmonary abnormality. Reviewed by: Leonid Haynes on 07/01/2022 5:24 PM [facility] Approved by: Leonid Haynes on 07/01/2022 5:24 PM [facility] Station ID: [id number]
== END 2022-07-01 15:26 | disposition home or self-care (01) ==
LOC: DI.S 15:25
PROVIDERS: ATTEND Nurse Practitioner Family
DX: R05.9 Cough, unspecified (principal)

== ENCOUNTER 2022-08-22 07:00 | Outpatient (CLI) | payer MEDICARE, OTHER ==
[2022-08-28 16:00] LABS: BILIRUBIN,URINE NEGATIVE (NEGATIVE); CLARITY,URINE SL. CLOUDY (CLEAR); GLUCOSE, URINE (UA) NEGATIVE (NEGATIVE); KETONES,URINE (UA) NEGATIVE (NEGATIVE); LEUKOCYTE ESTERASE, URINE LARGE (NEGATIVE); NITRITE,URINE NEGATIVE (NEGATIVE); OCCULT BLOOD,URINE TRACE-INTACT (NEGATIVE); PROTEIN,URINE NEGATIVE (NEGATIVE); UROBILINOGEN,URINE 0.2 (NORMAL) E.U./dL (NORMAL)
[2022-08-28 16:01] LABS: BACTERIA,URINE Few /HPF (None Seen); RBC,URINE 0-5 /HPF (0-5); SQUAMOUS EPITHELIAL CELL,UR FEW Squamous (<= Few); WBC CLUMPS,URINE PRESENT; WBC,URINE >25 /HPF (0-5)
== END 2022-08-22 23:59 | disposition home or self-care (01) ==
LOC: LAB.S 07:00
PROVIDERS: ATTEND Emergency Medicine
DX: N39.0 Urinary tract infection, site not specified (principal)
CPT/HCPCS: 81001; 87086; 87181

== ENCOUNTER 2023-01-14 12:45 | Outpatient (CLI) | payer MEDICARE ==
--- NOTE | 2023-01-14 17:57 | DEXA Report ---
PROCEDURE: Dexa Spine and/or Hip INDICATIONS: OSTEOPENIA TECHNIQUE: Dual energy x-ray absorptiometry (DXA) was performed on a [employer] System. Regions measur ed are the AP Spine, femoral neck, and if needed forearm. COMPARISON: DEXA 06/23/2018 FINDINGS: Lumbar Spine: Bone Mineral Density 1.348 g/cm/cm,T score 1.4. Since the most recent prior study, there has been a statistically significant increase in bone mineral density by 4.7 percent. Left Femoral Neck: Bone Mineral Density 0.748 g/cm/cm, T score -2.1. Left Hip: Bone Mineral Density 0.815 g/cm/cm,T score -1.5. Since the most recent prior study, there has been a statistically significant decrease in bone mineral density by 7.5 percent. (T score greater or equal to -1.0: NORMAL) (T score from -1.1 to -2.4: OSTEOPENIA) (T score less than or equal to -2.5 to: OSTEOPOROSIS) Impression: By WHO criteria, this patient has low bone density (osteopenia). Interval statistical increase in bone minteral density of the lumbar spine. Interval statistical decr ease in bone minteral density of the hip. Patients with diagnosis of osteoporosis or osteopenia should have regular bone mineral density assess ment. For those eligible for Medicare, routine testing is allowed once every 2 years. Testing frequ ency can be increased for patients who have rapidly progressing disease or for those who are receivin g medical therapy to restore bone mass. Reviewed by: Jayme Damon MD on 01/14/2023 5:55 PM PDT Approved by: Jayme Damon MD on 01/14/2023 5:55 PM PDT Station ID: [id number]
== END 2023-01-14 12:46 | disposition home or self-care (01) ==
LOC: DI 12:45
PROVIDERS: ATTEND Physician Assistant
DX: M85.89 Other specified disorders of bone density and structure, multiple sites (principal)

== ENCOUNTER 2023-03-11 08:00 | Outpatient (CLI) | payer MEDICARE ==
[2023-03-11 20:34] LABS: BILIRUBIN,URINE NEGATIVE (NEGATIVE); GLUCOSE, URINE (UA) NEGATIVE (NEGATIVE); KETONES,URINE (UA) NEGATIVE (NEGATIVE); LEUKOCYTE ESTERASE, URINE SMALL (NEGATIVE); NITRITE,URINE NEGATIVE (NEGATIVE); OCCULT BLOOD,URINE NEGATIVE (NEGATIVE); PH,URINE 6.5 PH (5.0-7.5); PROTEIN,URINE NEGATIVE (NEGATIVE); UROBILINOGEN,URINE 0.2 (NORMAL) E.U./dL (NORMAL)
[2023-03-11 20:45] LABS: BACTERIA,URINE Few /HPF (None Seen); CLARITY,URINE CLEAR (CLEAR); EPITHELIAL CELLS,UR FEW Transitional /HPF (<= Few); RBC,URINE 0-5 /HPF (0-5); SQUAMOUS EPITHELIAL CELL,UR FEW Squamous (<= Few)
== END 2023-03-11 23:59 | disposition home or self-care (01) ==
LOC: LAB.S 08:00
PROVIDERS: ATTEND Emergency Medicine
DX: R30.0 Dysuria (principal)
CPT/HCPCS: 81001; 87086

== ENCOUNTER 2023-03-29 10:13 | Outpatient (CLI) | payer MEDICARE | END 2023-03-29 10:14 | disposition home or self-care (01) | LOC: LAB.S 10:13 | PROVIDERS: ATTEND Internal Medicine | DX: E03.9 Hypothyroidism, unspecified (principal) | CPT/HCPCS: 36415; 84443 ==

== ENCOUNTER 2023-05-28 12:46 | Outpatient (CLI) | payer MEDICARE ==
--- NOTE | 2023-05-28 17:27 | XRAY Report ---
PROCEDURE: Elbow 3 View RT INDICATIONS: ELBOW FRACTURE TECHNIQUE: 3 views of the elbow were acquired. COMPARISON: 03/11/2023 FINDINGS: Bones: Healed depressed radial head fracture noted with bridging callus Soft tissues: No elbow joint effusion. No suspicious soft tissue calcifications. IMPRESSION: Healed radial head fracture. No acute fracture or joint effusion Reviewed by: Elliott Hernández MD on 05/28/2023 4:26 PM [facility] Approved by: Elliott Hernández MD on 05/28/2023 4:26 PM [facility] Station ID: [id number]
== END 2023-05-28 12:47 | disposition home or self-care (01) ==
LOC: DI.S 12:46
PROVIDERS: ATTEND Orthopaedic Surgery
DX: S52.121D Displaced fracture of head of right radius, subsequent encounter for closed fracture with routine healing (principal)

== ENCOUNTER 2023-09-06 15:10 | Outpatient (CLI) | payer MEDICARE | END 2023-09-06 15:11 | disposition home or self-care (01) | LOC: LAB 15:10 | PROVIDERS: ATTEND Internal Medicine | DX: E03.9 Hypothyroidism, unspecified (principal) | CPT/HCPCS: 36415; 84443 ==

== ENCOUNTER 2023-11-25 08:12 | Outpatient (CLI) | payer MEDICARE ==
[2023-11-25 10:00] LABS: % IRON SATURATION 28 % (20-50); IRON 117 ug/dL (50-212); TOTAL IRON BINDING CAPACITY 420 ug/dL (250-450); TRANSFERRIN 300 mg/dL (203-362)
[2023-11-27 00:08] LABS: HCV AB Non Reactive (Non Reactive)
== END 2023-11-25 08:13 | disposition home or self-care (01) ==
LOC: LAB 08:12
PROVIDERS: ATTEND Physician Assistant
DX: R74.01 Elevation of levels of liver transaminase levels (principal)
CPT/HCPCS: 36415; 81599; 83540; 84466; 86803

== ENCOUNTER 2023-11-28 08:38 | Outpatient (CLI) | payer MEDICARE ==
--- NOTE | 2023-11-28 14:10 | Ultrasound Report ---
PROCEDURE: Pelvic w/Transvaginal INDICATIONS: BLOATING, CONSTIPATION, ENDOMETRIAL HYPERPLASIA TECHNIQUE: Real-time scanning was performed of the pelvic organs, with image documentation. Additional endovagi nal scanning was necessary due to incomplete visualization of the adnexal and endometrial structures by transabdominal scanning. COMPARISON: Pelvic ultrasound on March 16, 2020. FINDINGS: Transvaginal exam was not performed due to patient intolerance to pain. Uterus: Uterus is retroverted and normal in size at 4.9 x 2.5 x 4.3 cm. The myometrium is heterogen eous. The endometrium measures 4 mm in combined thickness. Echogenic focus with fluid measuring 9 x 5 x 8 mm. Ovaries: Bilateral ovaries are not well seen. Other: No pathologic free abdominal or pelvic fluid. IMPRESSION: Transvaginal exam was not performed, limiting evaluation. 1.Echogenic focus with fluid in the endometrial complex measuring 9 x 5 x 8 mm which may represent ma lignancy. Recommend direct visualization and/or MRI (MOVIE EXTRA protocol) for further evaluation. 2.Endometrial thickness measuring 4 mm. Heterogeneous myometrium. 3.Bilateral ovaries are not well on transabdominal view. Reviewed by: Naa Payan MD on 11/28/2023 2:09 PM PDT Approved by: Naa Payan MD on 11/28/2023 2:09 PM PDT Station ID: [id number]
--- NOTE | 2023-11-28 14:13 | Ultrasound Report ---
PROCEDURE: Abdomen Limited INDICATIONS: BLOATING, CONSTIPATION, ENDOMETRIAL HYPERPLASIA TECHNIQUE: Real-time focused scanning was performed of the abdomen, with image documentation. COMPARISONS: None. FINDINGS: Evaluation is limited secondary to bowel gas. Liver: Liver is normal in size and heterogeneous in echotexture. No sonographic evidence of a solid mass. Main portal vein is patent with hepatopedal flow. Gallbladder: Unremarkable. Biliary ducts: Intrahepatic bile ducts are non-dilated. Extrahepatic bile duct caliber measures 4 m m. Normal is 6-7 mm or less in diameter, or 10 mm or less post-cholecystectomy. Pancreas: Visualized portions of the pancreas head are sonographically normal. Body and tail are not well seen secondary to bowel gas. Right kidney: Normal in size and echotexture. Right kidney measures 8 cm long. No hydronephrosis or nephrolithiasis. No solid masses. No complex renal cystic lesions which require follow-up. Aorta: Visualized aorta is normal in caliber at less than 3 cm. IVC: Intrahepatic inferior vena cava is patent. Miscellaneous: No free abdominal fluid. IMPRESSION: Evaluation is limited secondary to bowel gas. 1.Liver parenchyma is heterogeneous which is nonspecific and may be seen in the setting of parenchyma l disease such as steatosis/cirrhosis. Correlate with LFTs. No sonographic evidence of a solid mass. 2.Normal gallbladder with no biliary ductal dilatation. 3.Pancreas is not well seen secondary to bowel gas. If clinical symptoms persist, consider cross-sectional imaging for further evaluation. Reviewed by: Naa Payan MD on 11/28/2023 2:11 PM PDT Approved by: Naa Payan MD on 11/28/2023 2:11 PM PDT Station ID: [id number]
== END 2023-11-28 08:39 | disposition home or self-care (01) ==
LOC: DI 08:38
PROVIDERS: ATTEND Physician Assistant
DX: R14.0 Abdominal distension (gaseous) (principal); K59.00 Constipation, unspecified; R74.01 Elevation of levels of liver transaminase levels; R53.83 Other fatigue

== ENCOUNTER 2024-01-26 15:46 | Outpatient (CLI) | payer MEDICARE | END 2024-01-26 15:47 | disposition home or self-care (01) | LOC: LAB 15:46 | PROVIDERS: ATTEND Physician Assistant | DX: E03.9 Hypothyroidism, unspecified (principal) | CPT/HCPCS: 36415; 84443 ==

== ENCOUNTER 2024-04-17 10:05 | Outpatient (CLI) | payer MEDICARE ==
--- NOTE | 2024-04-17 11:19 | XRAY Report ---
PROCEDURE: Hip w/Pelvis 2-3V RT INDICATIONS: RIGHT HIP PAIN TECHNIQUE: 2 views of the hip were acquired. COMPARISON: None. FINDINGS: Bones: No fractures or dislocations. No suspicious bony lesions. Soft tissues: No suspicious soft tissue calcifications or masses. IMPRESSION: No acute bony abnormality. Reviewed by: Almita Hunt MD on 04/17/2024 11:18 AM PDT Approved by: Almita Hunt MD on 04/17/2024 11:18 AM PDT Station ID: [id number]
== END 2024-04-17 10:06 | disposition home or self-care (01) ==
LOC: DI 10:05
PROVIDERS: ATTEND Internal Medicine
DX: M25.551 Pain in right hip (principal)